=== PATIENT | female | born 1980 | race Two or more races ===

== ENCOUNTER 2018-08-19 13:51 | Emergency (ER) | payer SELFPAY ==
[~2018-08-19] VITALS: Ht 167.6 cm; Wt 73.0 kg
[2018-08-19 14:02] VITALS: BP 161/94
== END 2018-08-19 17:46 | disposition left against medical advice (07) ==
LOC: ER 14:10
DX: Z53.21 Procedure and treatment not carried out due to patient leaving prior to being seen by health care provider (principal)

== ENCOUNTER 2018-08-20 09:12 | Emergency (ER) | payer MEDICAID ==
[~2018-08-20] VITALS: Ht 162.6 cm; Wt 82.0 kg
[2018-08-20] MEDS ORDERED: KETOROLAC 60MG/2ML VIAL IM ONE (10:30)
[2018-08-20 10:37] VITALS: BP 172/108
== END 2018-08-20 12:37 | disposition home or self-care (01) ==
LOC: ER 09:12
DX: M25.512 Pain in left shoulder (principal); M54.5 Low back pain; R03.0 Elevated blood-pressure reading, without diagnosis of hypertension; Z98.890 Other specified postprocedural states; V89.2XXA Person injured in unspecified motor-vehicle accident, traffic, initial encounter; Y93.89 Activity, other specified; Y92.89 Other specified places as the place of occurrence of the external cause; Y99.8 Other external cause status
CPT/HCPCS: 72100; 73030; 81025; 96372; 99283